=== PATIENT | male | born 1955 | race Caucasian/White ===

== ENCOUNTER 2018-10-01 13:36 | Emergency (ER) | payer SELFPAY, MEDICAID ==
[2018-10-01] MEDS: ONDANSETRON 4 MG INJ IV (14:40)
== END 2018-10-01 15:41 | disposition home or self-care (01) ==
LOC: FTE 13:36
DX: S09.90XA Unspecified injury of head, initial encounter (principal); G44.209 Tension-type headache, unspecified, not intractable; R42 Dizziness and giddiness; W22.8XXA Striking against or struck by other objects, initial encounter; Y92.89 Other specified places as the place of occurrence of the external cause
CPT/HCPCS: 70450; 96374; 99285-25